=== PATIENT | female | born 1975 | race African-American/Black ===

== ENCOUNTER 2018-12-24 09:26 | Emergency (ER) | payer BC | END 2018-12-24 11:02 | disposition home or self-care (01) | LOC: NAV ERS 09:26 | DX: J06.9 Acute upper respiratory infection, unspecified (principal); J32.9 Chronic sinusitis, unspecified; B97.89 Other viral agents as the cause of diseases classified elsewhere; K21.9 Gastro-esophageal reflux disease without esophagitis; I10 Essential (primary) hypertension; Z79.899 Other long term (current) drug therapy | CPT/HCPCS: 87804; 99283 ==

== ENCOUNTER 2020-05-13 12:46 | Emergency (ER) | payer BC | END 2020-05-13 14:52 | disposition home or self-care (01) | LOC: NAV ERS 12:46 | DX: K03.81 Cracked tooth (principal); K21.9 Gastro-esophageal reflux disease without esophagitis; I10 Essential (primary) hypertension; Z79.899 Other long term (current) drug therapy | CPT/HCPCS: 99282 ==

== ENCOUNTER 2020-10-14 08:55 | Emergency (ER) | payer BC | END 2020-10-14 09:38 | disposition home or self-care (01) | LOC: NAV ERS 08:55 | DX: H65.92 Unspecified nonsuppurative otitis media, left ear (principal); K21.9 Gastro-esophageal reflux disease without esophagitis; I10 Essential (primary) hypertension; Z79.899 Other long term (current) drug therapy | CPT/HCPCS: 99283 ==

== ENCOUNTER 2023-10-29 09:58 | Emergency (ER) | payer BC, OTHER, SELFPAY | END 2023-10-29 10:45 | disposition home or self-care (01) | LOC: NAV ERS 09:58 | DX: M54.50 Low back pain, unspecified (principal); I10 Essential (primary) hypertension; K21.9 Gastro-esophageal reflux disease without esophagitis; Z79.899 Other long term (current) drug therapy | CPT/HCPCS: 99283 ==